=== PATIENT | female | born 1935 | race Caucasian/White ===

== ENCOUNTER 2017-03-28 10:40 | Inpatient (IN) | payer MEDICARE, MEDICAID, SELFPAY ==
[2017-03-28] VITALS (8 sets, daily range): BP systolic 160–188; BP diastolic 55–90; PULSE 51–80; RESP 14–18; TEMP 36.6–37.1; O2SAT 97–100; BMI 23.8; BMI 18.0; BMI 18.1
[2017-03-28 11:31] LABS: Absolute Lymphocyte Count 0.52 X10^3/ul (0.83-4.51); Absolute Neutrophil Count 2.1 X10^3/uL (2.0-7.7); Basophil# 0.12 X10^3/uL; Basophil% 3.4 % (0-1); Eosinophil# 0.29 X10^3/uL; Eosinophils% 8.2 % (0-5); Hematocrit 30.8 % (37-47); Hemoglobin 10.2 g/dl (12.0-15.0); Lymphocyte # 0.52 X10^3/ul (4.0); Lymphocyte % 14.7 % (19-41); Mean Corp Hgb Conc 33.1 g/gl (32-36); Mean Corpuscular Hgb 30.6 pg (27.0-32.0); Mean Corpuscular Volume 92.5 fL (81-99); Mean Platelet Vol. 9.1 fl (6.2-12.0); Monocyte% 14.1 % (0-10); Neutrophil # 2.11 X10^3/uL (2.7-7.7); Neutrophil % 59.6 % (47-70); Platelet Count 276 K/mm3 (150-450); RBC Distribution Width CV 13.2 % (11.6-14.6); RBC Distribution Width SD 43.6 fl (35.1-43.9); Red Blood Count 3.33 M/mm3 (4.2-5.4); White Blood Count 3.5 K/mm3 (4.4-11.0)
[2017-03-28 11:32] LABS: Differential Indicated SCAN CRITERIA MET; POSITIVE COUNT NO; POSITIVE DIFFERENTIAL YES; POSITIVE MORPHOLOGY NO
[2017-03-28 11:40] LABS: Anion Gap 9 (5-15); BUN 74 mg/dL (7-18); BUN/Creat Ratio 34.6 RATIO (10-20); Calcium,Total 8.5 mg/dL (8.5-10.1); Chloride 110 mmol/L (98-107); Creatinine, Serum 2.14 mg/dL (0.55-1.02); EST Glomerular Filtration Rate 23 mL/min (>60); Est Glom Filt Rate - Afr Amer 28 mL/min (>60); Estimated Creatinine Clearance 16.03 ml/min; Glucose 122 mg/dL (70-110); Potassium 4.8 mmol/L (3.5-5.1); Sodium Level 142 mmol/L (136-145)
[2017-03-28 11:45] LABS: Differential Comment SCANNED
[2017-03-28 11:54] LABS: Mucous, Urine 0 SEEN /hpf (<or=2+); Red Blood Cells-Urine 0 SEEN /hpf (0-5); Squamous Epithelial Cells - UA 0 SEEN /hpf (5-10)
[2017-03-28 12:01] LABS: Color, Urine Yellow (Yellow); Glucose, Dipstick Normal (Normal); Ketone-Dipstick Negative (Negative); Leukocyte Esterase-Dipstick 500 /ul (Negative); Nitrite-Dipstick Negative (Negative); Occult Blood-Urine 25 /ul (Negative); Protein-Dipstick 500 mg/dl (Negative); Urine Bilirubin Dipstick Negative (Negative); Urine Clarity Cloudy (Clear); Urine Urobilinogen Normal (Normal)
[2017-03-28 12:12] LABS: Bacteria 3+ /hpf (None Seen); White Blood Cells >100 SEEN /hpf (0-5)
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
[2017-03-28] MEDS: 0.9% Normal Saline 1,000 ML 100 ML IV (15:05)
[2017-03-28] MEDS: Menthol/Lanolin/Calamine/Znox 113 GM Tube 1 APPLIC TOPICAL (22:04)
[2017-03-29] VITALS (14 sets, daily range): BP systolic 130–200; BP diastolic 49–70; PULSE 43–57; RESP 14–18; TEMP 36.7–37.1; O2SAT 95–98
[2017-03-29] MEDS: 0.9% Normal Saline 1,000 ML 100 ML IV ×2 (00:41→10:08)
[2017-03-29] MEDS: amLODIPine 10 MG Tablet PO (06:11)
--- NOTE | 2017-03-29 08:23 | PCM.PN.HOSP ---
Subjective: Patient is an 81 year old lady admitted with confusion, progressive generalized weakness patient assessment on admission was consistent with UTI as well as acute kidney injury admitted to regular nursing floor where patient is currently being managed. Objective: GENERAL: Appears ill looking HEENT: Clear conjunctiva, dry oral mucosa NECK; supple, normal thyroid, CHEST: Clear to auscultation bilaterally, HEART: Regular S1 S2, systolic murmur ABDOMEN: soft, non-tender, normoactive bowel sounds, RECTAL: deferred EXTREMITIES: No edema, no cyanosis. DIRECTOR CLINICAL APPLICATIONS: Awake, no lateralizing signs. SKIN: Dry with loss of skin turgor Vitals/I&O's: Vital Signs Temp Pulse Resp BP Pulse Ox 98.2 F 55 14 200/62 98 03/29/17 08:22 03/29/17 08:22 03/29/17 08:22 03/29/17 08:22 03/29/17 08:22 Oxygen Delivery Method Room Air Weight: 44.8 kg Body Mass Index (BMI) 18.0 Intake and Output for Last 24 Hours 03/27/17 03/28/17 03/29/17 23:59 23:59 23:59 Intake Total 1271 584 Balance 1271 584 Current Medications Acetaminophen (Tylenol) 650 mg PO Q6H PRN PRN PRN Reason: Mild Pain (scale 0-3)/T>100.7 Al Hydroxide/Mg Hydroxide (Mylanta Ii) 30 ml PO Q6H PRN PRN PRN Reason: Gastric Burning Amlodipine Besylate (Norvasc) 10 mg PO DAILY [facility] Last Admin: 03/29/17 06:11 Dose: 10 mg Bisacodyl (Dulcolax) 10 mg RECTAL DAILY PRN PRN PRN Reason: Constipation Calamine/Phenol (Calmoseptine Ointment) 1 applic TOPICAL BID [facility] PRN Reason: Protocol Last Admin: 03/28/17 22:04 Dose: 1 applicatio Docusate Sodium (Colace) 200 mg PO BID PRN PRN PRN Reason: Constipation Enoxaparin Sodium (Lovenox) 30 mg SC DAILY@1000 SHANA Hydralazine HCl (Apresoline) 10 mg IV Q4H PRN PRN PRN Reason: hypertension Hydralazine HCl (Apresoline) 10 mg PO TID [facility] Sodium Chloride () 1,000 mls @ 100 mls/hr IV .Q10H [facility] Stop: 03/30/17 05:59 Last Admin: 03/29/17 00:41 Dose: 100 mls/hr Ceftriaxone Sodium 1 gm/ N/A 50 mls @ 100 mls/hr IV Q24 [facility] Labetalol HCl (Trandate) 200 mg PO BID [facility] Levothyroxine Sodium (Synthroid) 50 mcg PO DAILY [facility] Morphine Sulfate (Morphine) 2 - 4 mg IV Q3H PRN PRN PRN Reason: Severe Pain (pain scale 6-10) Morphine Sulfate (Morphine) 2 - 4 mg IV Q3H PRN PRN PRN Reason: Severe Pain (pain scale 6-10) Non-Formulary Medication (Menthol/Lanolin/Calamine/Znox [Calmoseptine Ointment]) 1 applic TOPICAL 0600,2200 [facility] Nutritional Formula (Lactose Free) (Ensure Enlive) 120 ml PO 4X/DAY [facility] Last Admin: 03/28/17 20:58 Dose: Not Given Ondansetron HCl (Zofran) 4 mg IV Q8H PRN PRN PRN Reason: Nausea Oxycodone HCl (Oxyir) 5 mg PO Q4H PRN PRN PRN Reason: Moderate Pain (pain scale 4-5) Polyethylene Glycol (Miralax) 17 gm PO DAILY PRN PRN Reason: Constipation Sodium Chloride () 5 - 30 ml IV UD PRN PRN Reason: SALINE FLUSH Zolpidem Tartrate (Ambien (Generic)) 5 mg PO QHS PRN PRN PRN Reason: INSOMNIA Assessment/Plan Patient is an 81-year-old lady presented with progressive generalized weakness found to have acute cystitis on admission 1. Acute cystitis: Admitted to a regular nursing floor started on Rocephin cultures sent 2. Acute kidney injury secondary to above and dehydration as a result of decreased oral intake patient on IV fluids with monitoring of electrolyte 3. Chronic kidney disease stage III secondary to hypertensive nephrosclerosis 4. Hypertension did continue with patient home medications 5. Hypothyroidism-patient is on levothyroxine home dose continued 6. 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 Anemia secondary to anemia of chronic disorder monitoring H&H with plans to transfuse if patient becomes symptomatic or hemoglobin falls below 7 8. DVT prophylaxis SCD Lovenox dose adjusted for kidney function 9. Acute encephalopathy (combination of infectious encephalopathy from UTI as well as metabolic encephalopathy from [place] I) CODE STATUS full code discussed with patient and son
[2017-03-29 09:12] LABS: Hemoglobin 10.8 g/dl (12.0-15.0); Mean Corp Hgb Conc 32.7 g/gl (32-36); Mean Corpuscular Hgb 30.3 pg (27.0-32.0); Mean Corpuscular Volume 92.7 fL (81-99); Mean Platelet Vol. 10.1 fl (6.2-12.0); Platelet Count 265 K/mm3 (150-450); RBC Distribution Width CV 13.4 % (11.6-14.6); RBC Distribution Width SD 44.2 fl (35.1-43.9); Red Blood Count 3.56 M/mm3 (4.2-5.4); White Blood Count 3.5 K/mm3 (4.4-11.0)
[2017-03-29 09:15] LABS: Scan Indicated on CBC? Y/N NO
[2017-03-29 09:27] LABS: Anion Gap 10 (5-15); BUN 67 mg/dL (7-18); BUN/Creat Ratio 36.8 RATIO (10-20); Calcium,Total 8.2 mg/dL (8.5-10.1); Chloride 112 mmol/L (98-107); Creatinine, Serum 1.82 mg/dL (0.55-1.02); EST Glomerular Filtration Rate 28 mL/min (>60); Est Glom Filt Rate - Afr Amer 34 mL/min (>60); Estimated Creatinine Clearance 16.85 ml/min; Glucose 144 mg/dL (70-110); Magnesium 2.1 mg/dL (1.8-2.4); Potassium 4.2 mmol/L (3.5-5.1); Sodium Level 141 mmol/L (136-145)
[2017-03-29] MEDS: Menthol/Lanolin/Calamine/Znox 113 GM Tube 1 APPLIC TOPICAL ×2 (10:04→21:18)
[2017-03-29] MEDS: Enoxaparin 30 MG/0.3 ML Syringe SC (10:05)
[2017-03-29] MEDS: Labetalol 200 MG Tablet PO ×2 (10:06→21:18)
[2017-03-29] MEDS: Levothyroxine 50 MCG Tablet PO (10:06)
--- NOTE | 2017-03-29 10:10 | CPS ---
patient unable to comprehend
[2017-03-29] MEDS: Acetaminophen 325 MG Tablet 650 MG PO (10:16)
[2017-03-29] MEDS: 0.45% Normal Saline 1,000 ML 100 ML IV (11:33)
--- NOTE | 2017-03-29 12:56 | NS ---
Noted weight stated by pt, please weigh patient to ensure wt accuracy.
[2017-03-29] MEDS: Zolpidem Tartrate 5 MG Tablet PO (21:29)
[2017-03-30] VITALS (10 sets, daily range): BP systolic 172–182; BP diastolic 54–67; PULSE 54–68; RESP 16–18; TEMP 36.8–37; O2SAT 95–98
[2017-03-30] MEDS: Levothyroxine 50 MCG Tablet PO (05:06)
[2017-03-30 06:29] LABS: Hematocrit 30.3 % (37-47); Hemoglobin 9.6 g/dl (12.0-15.0); Mean Corp Hgb Conc 31.7 g/gl (32-36); Mean Corpuscular Hgb 29.6 pg (27.0-32.0); Mean Corpuscular Volume 93.5 fL (81-99); Mean Platelet Vol. 9.9 fl (6.2-12.0); Platelet Count 280 K/mm3 (150-450); RBC Distribution Width CV 13.4 % (11.6-14.6); RBC Distribution Width SD 44.3 fl (35.1-43.9); Red Blood Count 3.24 M/mm3 (4.2-5.4); White Blood Count 3.9 K/mm3 (4.4-11.0)
[2017-03-30 06:43] LABS: Anion Gap 8 (5-15); BUN 63 mg/dL (7-18); BUN/Creat Ratio 31.3 RATIO (10-20); Calcium,Total 8.1 mg/dL (8.5-10.1); Chloride 111 mmol/L (98-107); Creatinine, Serum 2.01 mg/dL (0.55-1.02); EST Glomerular Filtration Rate 25 mL/min (>60); Est Glom Filt Rate - Afr Amer 31 mL/min (>60); Estimated Creatinine Clearance 15.26 ml/min; Glucose 122 mg/dL (70-110); Potassium 4.3 mmol/L (3.5-5.1); Sodium Level 139 mmol/L (136-145)
[2017-03-30 07:15] LABS: Scan Indicated on CBC? Y/N NO
[2017-03-30] MEDS: Menthol/Lanolin/Calamine/Znox 113 GM Tube 1 APPLIC TOPICAL (10:13)
[2017-03-30] MEDS: Labetalol 200 MG Tablet PO (10:14)
[2017-03-30] MEDS: Enoxaparin 30 MG/0.3 ML Syringe SC (10:14)
[2017-03-30] MEDS: amLODIPine 10 MG Tablet PO (10:14)
--- NOTE | 2017-03-30 10:25 | PCM.DC ---
- Discharge Diagnoses Current Active Problems: Current Active and Chronic Problems CKD (chronic kidney disease) stage 3, GFR 30-59 ml/min (Chronic) You will use the following diet at home:: No restrictions Discharge Activity: Return to Normal Activity Allergies/Adverse Reactions: Allergies Penicillins Allergy (Verified 03/28/17 10:43) Unknown Medications to take at Discharge Amlodipine [Norvasc] 10 mg PO DAILY 09/30/15 Labetalol [Trandate (Beta Oli)] 200 mg PO BID 09/30/15 Levothyroxine [Synthroid] 50 mcg PO DAILY 09/30/15 HydrALAZINE [Apresoline] 10 mg PO TID #90 tablet 02/04/17 Menthol/Lanolin/Calamine/Znox [Calmoseptine Ointment] 1 applic TOPICAL 0600,2200 #1 tube 02/04/17 Nystatin Powder [Mycostatin Powder] 1 applic TOPICAL 0600,2200 #1 bottle 02/04/17 Lisinopril [Zestril] 10 mg PO DAILY 03/28/17 Oxybutynin [Ditropan] 5 mg PO BID 03/28/17 Polyethylene Glycol 3350 [Miralax] 17 gm PO DAILY PRN 03/28/17 Ciprofloxacin [Cipro] 250 mg PO BID 5 Days 03/30/17 The following prescriptions were given: Ciprofloxacin [Cipro] 250 mg PO BID 5 Days Primary Care Physician: Felipe Ramirez MD [Primary Care Provider] - Proposed Discharge Date: 03/30/17
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
== END 2017-03-30 11:55 | disposition home or self-care (01) | DRG 690 ==
PROVIDERS: Admitting Provider Internal Medicine; Emergency Provider Emergency Medicine; Family Provider Family Medicine; PCP Family Medicine; Visit Provider Internal Medicine
DX: N30.00 Acute cystitis without hematuria (principal); G82.22 Paraplegia, incomplete; B96.4 Proteus (mirabilis) (morganii) as the cause of diseases classified elsewhere; I12.9 Hypertensive chronic kidney disease with stage 1 through stage 4 chronic kidney disease, or unspecified chronic kidney disease; R62.7 Adult failure to thrive; D64.9 Anemia, unspecified; E03.9 Hypothyroidism, unspecified; N18.3 Chronic kidney disease, stage 3 (moderate); Z79.899 Other long term (current) drug therapy; B91 Sequelae of poliomyelitis; E86.0 Dehydration; E11.22 Type 2 diabetes mellitus with diabetic chronic kidney disease
CPT/HCPCS: 36415; 80048; 81001; 83735; 85025; 85027; 87077; 87086; 87088; 87186; 97162; 97166; 97802; 99285; J7030; P9612; A4216

== ENCOUNTER 2017-08-06 08:31 | Inpatient (IN) | payer MEDICARE, SELFPAY ==
[2017-08-06] VITALS (26 sets, daily range): BP systolic 153–205; BP diastolic 48–166; PULSE 58–86; RESP 13–20; TEMP 36.4–37.1; O2SAT 96–98; BMI 23.2; BMI 22.1; BMI 22.2
--- NOTE | 2017-08-06 08:47 | RAD_ITS ---
PROCEDURE: X-RAY CHEST REASON FOR EXAM: Female, 81 years old. weakness TECHNIQUE: Frontal view of the chest. COMPARISON: July 14, 2017 FINDINGS: The lung volumes are low without demonstrated focal consolidation or pleural effusion.. Again noted is the moderate enlargement of the cardiomediastinal silhouette. There is aortic arch calcifications. There is a hiatal hernia. There is no pneumothorax. RAD/Chest 1 View (Portable) IMPRESSION: No focal consolidation or pleural effusion Cardiomegaly. Electronically Signed: Vladimir Barcenas MD at 10:23 EST Tel , Service support ,
--- NOTE | 2017-08-06 08:47 | CT_ITS ---
STUDY: CT BRAIN WITHOUT CONTRAST REASON FOR EXAM: Female, 81 years old. Confusion, dementia, hypertension, diabetes, polio, uterine cancer. RADIATION DOSAGE (If Supplied By Facility): CTDIvol = ( 44.99 ) mGy, DLP = ( 796.11 ) mGycm TECHNIQUE: Transaxial CT imaging of the brain was performed without administration of intravenous contrast material. Individualized dose optimization techniques were used for this CT. COMPARISON: None. FINDINGS: There is cerebral atrophy with widening of the extra-axial spaces and ventricular dilatation. There are areas of decreased attenuation within the white matter tracts of the supratentorial brain, consistent with microvascular disease changes. There is no intracranial hemorrhage. There are no findings of an acute ischemic infarction. Normal soft tissue structures. Normal visualized paranasal sinuses. CT/Brain/Head without Contrast IMPRESSION: Chronic involutional changes of the brain. Electronically Signed: Vladimir Barcenas MD at 10:21 EST Tel , Service support ,
--- NOTE | 2017-08-06 08:48 | EKG12_ITS ---
Test Reason : ILL Blood Pressure : / mmHG Vent. Rate : 066 BPM Atrial Rate : 066 BPM P-R Int : 168 ms QRS Dur : 086 ms QT Int : 472 ms P-R-T Axes : 045 018 048 degrees QTc Int : 494 ms Sinus rhythm with occasional Premature ventricular complexes Low voltage QRS Septal infarct , age undetermined Abnormal ECG Confirmed by AURA NAPIER, CISCO ([id number]), editor city ELIEZER BETTENCOURT ([id number]) on 08/11/2017 1:22:46 PM Referred By: MATTIE Confirmed By:CISCO CHAVARRIA MD
[2017-08-06] MEDS: 0.9% Normal Saline 1,000 ML 150 ML IV (09:23)
[2017-08-06 09:25] LABS: Bacteria 0 SEEN /hpf (None Seen); Mucous, Urine 0 SEEN /hpf (<or=2+); Red Blood Cells-Urine 0 SEEN /hpf (0-5); White Blood Cells 0 SEEN /hpf (0-5)
[2017-08-06 09:26] LABS: Color, Urine Yellow (Yellow); Glucose, Dipstick 50 mg/dl (Normal); Ketone-Dipstick Negative (Negative); Leukocyte Esterase-Dipstick Negative /ul (Negative); Nitrite-Dipstick Negative (Negative); Occult Blood-Urine Negative /ul (Negative); Protein-Dipstick 500 mg/dl (Negative); Specific Gravity, Urine 1.015 (1.002-1.030); Urine Bilirubin Dipstick Negative (Negative); Urine Clarity Sl. Cloudy (Clear); Urine Urobilinogen Normal (Normal)
[2017-08-06 09:31] LABS: Absolute Lymphocyte Count 0.49 X10^3/ul (0.83-4.51); Absolute Neutrophil Count 3.6 X10^3/uL (2.0-7.7); Basophil# 0.08 X10^3/uL; Basophil% 1.7 % (0-1); Eosinophil# 0.19 X10^3/uL; Eosinophils% 4.1 % (0-5); Hematocrit 29.3 % (37-47); Hemoglobin 9.4 g/dl (12.0-15.0); Lymphocyte # 0.49 X10^3/ul (4.0); Lymphocyte % 10.5 % (19-41); Mean Corp Hgb Conc 32.1 g/gl (32-36); Mean Corpuscular Hgb 31.8 pg (27.0-32.0); Mean Platelet Vol. 9.5 fl (6.2-12.0); Monocyte# 0.28 X10^3/uL; Neutrophil # 3.62 X10^3/uL (2.7-7.7); Neutrophil % 77.5 % (47-70); Platelet Count 259 K/mm3 (150-450); RBC Distribution Width CV 14.4 % (11.6-14.6); RBC Distribution Width SD 51.3 fl (35.1-43.9); Red Blood Count 2.96 M/mm3 (4.2-5.4); White Blood Count 4.7 K/mm3 (4.4-11.0)
[2017-08-06 09:32] LABS: Differential Indicated SCAN CRITERIA MET; POSITIVE COUNT NO; POSITIVE DIFFERENTIAL YES; POSITIVE MORPHOLOGY NO
[2017-08-06 09:35] LABS: Amorphous Sediment 1+; Squamous Epithelial Cells - UA 0-5 SEEN /hpf (5-10)
[2017-08-06 09:49] LABS: Acanthocytes 1+; Burr Cells RARE; Hypochromasia 1+; Platelet Estimate ADEQUATE (ADEQ); Schistocytes 1+
[2017-08-06 10:56] LABS: AST(SGOT) 20 U/L (15-37); Alanine Aminotransfer ALT/SGPT 20 U/L (12-78); Albumin, Serum 2.8 g/dL (3.4-5.0); Alkaline Phosphatase 92 U/L (45-117); Anion Gap 10 (5-15); BUN 49 mg/dL (7-18); BUN/Creat Ratio 22.3 RATIO (10-20); Calcium,Total 8.2 mg/dL (8.5-10.1); Chloride 114 mmol/L (98-107); EST Glomerular Filtration Rate 23 mL/min (>60); Est Glom Filt Rate - Afr Amer 27 mL/min (>60); Estimated Creatinine Clearance 15.59 ml/min; Globulin 2.9 g/dL (2.2-4.2); Glucose 104 mg/dL (70-110); Potassium 7.2 mmol/L (3.5-5.1); Protein, Total 5.7 g/dL (6.4-8.2); Sodium Level 138 mmol/L (136-145)
--- NOTE | 2017-08-06 10:56 | ED.RN ---
POTASSIUM 7.2. MD AWARE.
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
[2017-08-06] MEDS: Albuterol 2.5 MG/3 ML VIAL.NEB. INHALATION (11:19)
[2017-08-06] MEDS: Dextrose 50%-Water 25 GM/50 ML DISP.SYRIN IV (11:37)
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
[2017-08-06] MEDS: Calcium Chloride 1 GM/10 ML Syringe IV (11:39)
[2017-08-06] MEDS: Sodium Bicarbonate 8.4% 50 ML Syringe 50 MEQ IV (11:41)
[2017-08-06] MEDS: Sodium Polystyrene Sulfonate 15 GM/60 ML UDC 30 GM PO ×2 (11:45→20:08)
[2017-08-06 13:28] LABS: CPK Total, Creatine Kinase 159 U/L (26-192); Prealbumin 21.1 mg/dL (20.0-40.0)
[2017-08-06] MEDS: 0.9% Normal Saline 1,000 ML 100 ML IV ×2 (14:15→23:07)
[2017-08-06] MEDS: Heparin Injection 5,000 UNITS/ML Syringe 5000 UNITS SC ×2 (14:24→21:00)
[2017-08-06 18:51] LABS: Potassium 5.8 mmol/L (3.5-5.1)
[2017-08-06] MEDS: Oxybutynin 5 MG Tablet PO (21:00)
[2017-08-06] MEDS: Labetalol 200 MG Tablet PO (21:00)
[2017-08-07] VITALS (30 sets, daily range): BP systolic 141–198; BP diastolic 40–85; PULSE 52–76; RESP 12–16; TEMP 36.4–37.1; O2SAT 93–98
[2017-08-07 00:01] LABS: Potassium 4.7 mmol/L (3.5-5.1)
[2017-08-07] MEDS: Heparin Injection 5,000 UNITS/ML Syringe 5000 UNITS SC ×3 (05:50→23:06)
[2017-08-07] MEDS: Levothyroxine 50 MCG Tablet PO (05:50)
--- NOTE | 2017-08-07 05:55 | EKG12_ITS ---
Test Reason : AM Blood Pressure : / mmHG Vent. Rate : 069 BPM Atrial Rate : 069 BPM P-R Int : 158 ms QRS Dur : 068 ms QT Int : 400 ms P-R-T Axes : 032 052 043 degrees QTc Int : 428 ms Normal sinus rhythm Low voltage QRS Septal infarct (cited on or before 01-JUL-2017) Abnormal ECG When compared with ECG of 14-JUL-2017 13:33, T wave amplitude has decreased in Anterior leads Confirmed by AURA NAPIER, CISCO ([id number]), image editor ELIEZER BETTENCOURT ([id number]) on 08/12/2017 4:09:46 PM Referred By: Confirmed By:CISCO CHAVARRIA MD
[2017-08-07 06:44] LABS: Anion Gap 10 (5-15); BUN 40 mg/dL (7-18); BUN/Creat Ratio 20.9 RATIO (10-20); Calcium,Total 7.8 mg/dL (8.5-10.1); Chloride 118 mmol/L (98-107); Creatinine, Serum 1.91 mg/dL (0.55-1.02); EST Glomerular Filtration Rate 27 mL/min (>60); Est Glom Filt Rate - Afr Amer 32 mL/min (>60); Estimated Creatinine Clearance 17.96 ml/min; Glucose 105 mg/dL (70-110); Potassium 4.1 mmol/L (3.5-5.1); Sodium Level 144 mmol/L (136-145)
[2017-08-07 06:57] LABS: Absolute Lymphocyte Count 0.42 X10^3/ul (0.83-4.51); Absolute Neutrophil Count 2.4 X10^3/uL (2.0-7.7); Basophil# 0.08 X10^3/uL; Basophil% 2.4 % (0-1); Eosinophil# 0.19 X10^3/uL; Eosinophils% 5.7 % (0-5); Hematocrit 24.2 % (37-47); Hemoglobin 7.8 g/dl (12.0-15.0); Lymphocyte # 0.42 X10^3/ul (4.0); Lymphocyte % 12.7 % (19-41); Mean Corp Hgb Conc 32.2 g/gl (32-36); Mean Corpuscular Volume 99.2 fL (81-99); Monocyte# 0.24 X10^3/uL; Monocyte% 7.2 % (0-10); Neutrophil # 2.39 X10^3/uL (2.7-7.7); Platelet Count 266 K/mm3 (150-450); RBC Distribution Width CV 13.9 % (11.6-14.6); RBC Distribution Width SD 47.8 fl (35.1-43.9); Red Blood Count 2.44 M/mm3 (4.2-5.4); White Blood Count 3.3 K/mm3 (4.4-11.0)
[2017-08-07 07:04] LABS: Differential Indicated SCAN CRITERIA MET; POSITIVE COUNT NO; POSITIVE DIFFERENTIAL YES; POSITIVE MORPHOLOGY NO
[2017-08-07 07:22] LABS: Differential Comment SCANNED
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
--- NOTE | 2017-08-07 09:06 | CASEMGMT ---
Received VMM from [facility], whose name sounded like [facility], requesting a call-back regarding disposition plan for patient. RN CHRISTINA made referral to social media editor, Swati Story, due to complex pyschosocial history. The patient is dependent on aides and family for all ADLs, is wheelchair bound, and receives Mom's Meals. Patient is a readmission, with an admission in June and two admissions in July. Contact information for [facility] provided to [facility] Swati MALIN. RN CM will remain available to assist with transition planning and care coordination as needed.
[2017-08-07 09:11] LABS: Ferritin 121 ng/mL (8-252); Iron 55 ug/dL (50-170); Iron Binding Capacity,Total 237 ug/dL (250-450); PERCENT IRON SATURATION 23.2 % (15.0-55.0)
[2017-08-07] MEDS: 0.9% Normal Saline 1,000 ML 75 ML IV (09:23)
[2017-08-07] MEDS: Docusate Sodium 100 MG Capsule PO ×2 (09:24→23:07)
[2017-08-07] MEDS: Labetalol 200 MG Tablet PO ×2 (09:24→23:06)
[2017-08-07] MEDS: amLODIPine 10 MG Tablet PO (09:24)
[2017-08-07] MEDS: Oxybutynin 5 MG Tablet PO ×2 (09:24→23:09)
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
[2017-08-08] VITALS (21 sets, daily range): BP systolic 162–216; BP diastolic 46–98; PULSE 38–65; RESP 16–18; TEMP 36.7–37.2; O2SAT 94–96
[2017-08-08] MEDS: 0.9% Normal Saline 1,000 ML 75 ML IV (05:18)
[2017-08-08] MEDS: Heparin Injection 5,000 UNITS/ML Syringe 5000 UNITS SC ×2 (05:45→15:29)
[2017-08-08] MEDS: Levothyroxine 50 MCG Tablet PO (05:45)
[2017-08-08] MEDS: cloNIDine HCl 0.2 MG Tablet PO (07:41)
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
[2017-08-08 08:19] LABS: Absolute Lymphocyte Count 0.42 X10^3/ul (0.83-4.51); Absolute Neutrophil Count 2.8 X10^3/uL (2.0-7.7); Basophil# 0.08 X10^3/uL; Basophil% 2.1 % (0-1); Eosinophil# 0.22 X10^3/uL; Eosinophils% 5.8 % (0-5); Hematocrit 30.1 % (37-47); Hemoglobin 9.8 g/dl (12.0-15.0); Lymphocyte # 0.42 X10^3/ul (4.0); Lymphocyte % 11.1 % (19-41); Mean Corp Hgb Conc 32.6 g/gl (32-36); Mean Corpuscular Hgb 30.8 pg (27.0-32.0); Mean Corpuscular Volume 94.7 fL (81-99); Mean Platelet Vol. 9.6 fl (6.2-12.0); Monocyte# 0.29 X10^3/uL; Monocyte% 7.7 % (0-10); Neutrophil # 2.76 X10^3/uL (2.7-7.7); Platelet Count 272 K/mm3 (150-450); RBC Distribution Width CV 16.2 % (11.6-14.6); RBC Distribution Width SD 54.5 fl (35.1-43.9); Red Blood Count 3.18 M/mm3 (4.2-5.4); White Blood Count 3.8 K/mm3 (4.4-11.0)
[2017-08-08 08:25] LABS: Differential Indicated SCAN CRITERIA MET; POSITIVE COUNT NO; POSITIVE DIFFERENTIAL YES; POSITIVE MORPHOLOGY NO
[2017-08-08 08:37] LABS: Anion Gap 9 (5-15); BUN 33 mg/dL (7-18); BUN/Creat Ratio 21.9 RATIO (10-20); Calcium,Total 7.7 mg/dL (8.5-10.1); Chloride 118 mmol/L (98-107); Creatinine, Serum 1.51 mg/dL (0.55-1.02); EST Glomerular Filtration Rate 35 mL/min (>60); Est Glom Filt Rate - Afr Amer 42 mL/min (>60); Estimated Creatinine Clearance 22.72 ml/min; Glucose 124 mg/dL (70-110); Potassium 3.6 mmol/L (3.5-5.1); Sodium Level 146 mmol/L (136-145)
[2017-08-08] MEDS: Docusate Sodium 100 MG Capsule PO (09:34)
[2017-08-08] MEDS: amLODIPine 10 MG Tablet PO (09:35)
[2017-08-08] MEDS: Oxybutynin 5 MG Tablet PO (09:36)
[2017-08-08] MEDS: 0.45% Normal Saline 1,000 ML 60 ML IV (10:20)
--- NOTE | 2017-08-08 19:26 | NURSING ---
REVIEWED AND AGREED W/ Fareed RODRIGUEZONS CHARTING.
[2017-08-09] VITALS (24 sets, daily range): BP systolic 159–207; BP diastolic 55–73; PULSE 41–66; RESP 15–18; TEMP 36.4–37.2; O2SAT 94–97
[2017-08-09] MEDS: 0.45% Normal Saline 1,000 ML 60 ML IV ×2 (01:26→17:35)
[2017-08-09] MEDS: Heparin Injection 5,000 UNITS/ML Syringe 5000 UNITS SC ×2 (05:44→20:45)
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
[2017-08-09] MEDS: Levothyroxine 50 MCG Tablet PO (07:40)
[2017-08-09] MEDS: amLODIPine 10 MG Tablet PO ×2 (10:12→20:41)
[2017-08-09] MEDS: Oxybutynin 5 MG Tablet PO ×2 (10:12→20:45)
[2017-08-09] MEDS: Docusate Sodium 100 MG Capsule PO (10:12)
[2017-08-10] VITALS (20 sets, daily range): BP systolic 167–204; BP diastolic 46–69; PULSE 50–64; RESP 15–18; TEMP 36.6–37.3; O2SAT 94–96
[2017-08-10] MEDS: Labetalol 200 MG Tablet PO ×2 (01:40→10:25)
[2017-08-10] MEDS: Heparin Injection 5,000 UNITS/ML Syringe 5000 UNITS SC ×2 (06:04→21:10)
[2017-08-10] MEDS: Levothyroxine 50 MCG Tablet PO (06:04)
[2017-08-10 06:25] LABS: Absolute Lymphocyte Count 0.43 X10^3/ul (0.83-4.51); Basophil# 0.07 X10^3/uL; Basophil% 1.3 % (0-1); Eosinophil# 0.39 X10^3/uL; Eosinophils% 7.5 % (0-5); Hematocrit 34.4 % (37-47); Hemoglobin 10.7 g/dl (12.0-15.0); Lymphocyte # 0.43 X10^3/ul (4.0); Lymphocyte % 8.3 % (19-41); Mean Corp Hgb Conc 31.1 g/gl (32-36); Mean Corpuscular Hgb 30.7 pg (27.0-32.0); Mean Corpuscular Volume 98.6 fL (81-99); Mean Platelet Vol. 9.9 fl (6.2-12.0); Monocyte# 0.33 X10^3/uL; Monocyte% 6.3 % (0-10); Neutrophil # 3.96 X10^3/uL (2.7-7.7); Neutrophil % 76.2 % (47-70); POSITIVE COUNT NO; POSITIVE DIFFERENTIAL YES; POSITIVE MORPHOLOGY NO; Platelet Count 198 K/mm3 (150-450); RBC Distribution Width CV 16.3 % (11.6-14.6); RBC Distribution Width SD 58.9 fl (35.1-43.9); Red Blood Count 3.49 M/mm3 (4.2-5.4); White Blood Count 5.2 K/mm3 (4.4-11.0)
[2017-08-10 06:26] LABS: Differential Indicated SCAN CRITERIA MET
[2017-08-10 06:37] LABS: Anion Gap 10 (5-15); BUN 34 mg/dL (7-18); BUN/Creat Ratio 25.4 RATIO (10-20); Calcium,Total 7.8 mg/dL (8.5-10.1); Chloride 115 mmol/L (98-107); Creatinine, Serum 1.34 mg/dL (0.55-1.02); EST Glomerular Filtration Rate 40 mL/min (>60); Est Glom Filt Rate - Afr Amer 49 mL/min (>60); Glucose 116 mg/dL (70-110); Sodium Level 142 mmol/L (136-145)
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
[2017-08-10] MEDS: amLODIPine 10 MG Tablet PO ×2 (10:24→21:10)
[2017-08-10] MEDS: Lisinopril 10 MG Tablet PO (10:25)
[2017-08-10] MEDS: Doxazosin 4 MG Tablet PO (10:25)
[2017-08-10] MEDS: Docusate Sodium 100 MG Capsule PO ×2 (10:26→21:10)
[2017-08-10] MEDS: Oxybutynin 5 MG Tablet PO ×2 (10:27→21:10)
[2017-08-10] MEDS: 0.45% Normal Saline 1,000 ML 30 ML IV (11:38)
[2017-08-11] VITALS (16 sets, daily range): BP systolic 145–178; BP diastolic 49–62; PULSE 54–68; RESP 16–18; TEMP 36.7–37.2; O2SAT 93–96
[2017-08-11] MEDS: Heparin Injection 5,000 UNITS/ML Syringe 5000 UNITS SC ×3 (05:28→22:48)
[2017-08-11] MEDS: Levothyroxine 50 MCG Tablet PO (05:28)
[2017-08-11 06:52] LABS: Anion Gap 9 (5-15); BUN 38 mg/dL (7-18); BUN/Creat Ratio 24.1 RATIO (10-20); Calcium,Total 7.6 mg/dL (8.5-10.1); Chloride 115 mmol/L (98-107); Creatinine, Serum 1.58 mg/dL (0.55-1.02); EST Glomerular Filtration Rate 33 mL/min (>60); Est Glom Filt Rate - Afr Amer 40 mL/min (>60); Estimated Creatinine Clearance 21.71 ml/min; Glucose 119 mg/dL (70-110); Potassium 4.3 mmol/L (3.5-5.1); Sodium Level 142 mmol/L (136-145)
[2017-08-11] MEDS: Docusate Sodium 100 MG Capsule PO ×2 (09:49→22:47)
[2017-08-11] MEDS: Oxybutynin 5 MG Tablet PO ×2 (09:49→22:47)
[2017-08-11] MEDS: Doxazosin 4 MG Tablet PO (09:49)
[2017-08-11] MEDS: amLODIPine 10 MG Tablet PO ×2 (09:49→22:47)
[2017-08-11] MEDS: Lisinopril 10 MG Tablet PO (09:50)
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
[2017-08-11] MEDS: 0.9% Normal Saline 1,000 ML 75 ML IV (14:14)
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
--- NOTE | 2017-08-11 16:24 | CASEMGMT ---
KIMO spoke with Bria from [facility]. They can take patient and pre-cert has been started. Plan: [facility] pending insurance approval. Suze FONSECA MSW
[2017-08-11] MEDS: Labetalol 200 MG Tablet PO (23:05)
[2017-08-12] VITALS (15 sets, daily range): BP systolic 149–170; BP diastolic 47–74; PULSE 56–64; RESP 18; TEMP 36.9–37; O2SAT 94–95
[2017-08-12] MEDS: 0.9% Normal Saline 1,000 ML 100 ML IV ×3 (01:22→20:07)
[2017-08-12] MEDS: Heparin Injection 5,000 UNITS/ML Syringe 5000 UNITS SC ×3 (05:09→22:15)
[2017-08-12] MEDS: Levothyroxine 50 MCG Tablet PO (05:09)
[2017-08-12 07:01] LABS: Anion Gap 5 (5-15); BUN 42 mg/dL (7-18); BUN/Creat Ratio 28.2 RATIO (10-20); Calcium,Total 7.5 mg/dL (8.5-10.1); Chloride 116 mmol/L (98-107); Creatinine, Serum 1.49 mg/dL (0.55-1.02); EST Glomerular Filtration Rate 36 mL/min (>60); Est Glom Filt Rate - Afr Amer 43 mL/min (>60); Estimated Creatinine Clearance 23.02 ml/min; Glucose 118 mg/dL (70-110); Potassium 4.4 mmol/L (3.5-5.1); Sodium Level 142 mmol/L (136-145)
[2017-08-12] MEDS: Lisinopril 40 MG Tablet PO (09:05)
[2017-08-12] MEDS: Labetalol 200 MG Tablet PO ×2 (09:05→22:14)
[2017-08-12] MEDS: amLODIPine 10 MG Tablet PO ×2 (09:06→22:14)
[2017-08-12] MEDS: Docusate Sodium 100 MG Capsule PO ×2 (09:06→22:14)
[2017-08-12] MEDS: Oxybutynin 5 MG Tablet PO ×2 (09:06→22:14)
[2017-08-12] MEDS: Doxazosin 4 MG Tablet PO (09:06)
[2017-08-12 16:09] LABS: Albumin 2.3 g/dL (2.9-4.4); Alpha-1-Globulins 0.2 g/dL (0.0-0.4); Alpha-2-Globulins 0.7 g/dL (0.4-1.0); Gamma Globulin 0.4 g/dL (0.4-1.8); Immunoglobulin A 122 mg/dL (64-422); Immunoglobulin G 408 mg/dL (700-1600); PROEL- TOTAL PROTEIN 4.4 g/dL (6.0-8.5)
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
[2017-08-12 18:50] LABS: Immunoglobulin M 14 mg/dL (26-217)
[2017-08-13] VITALS (13 sets, daily range): BP systolic 142–185; BP diastolic 54–68; PULSE 57–63; RESP 16–18; TEMP 36.8–36.9; O2SAT 93–95
[2017-08-13 06:01] LABS: Anion Gap 9 (5-15); BUN 47 mg/dL (7-18); BUN/Creat Ratio 32.6 RATIO (10-20); Calcium,Total 7.6 mg/dL (8.5-10.1); Chloride 116 mmol/L (98-107); Creatinine, Serum 1.44 mg/dL (0.55-1.02); EST Glomerular Filtration Rate 37 mL/min (>60); Est Glom Filt Rate - Afr Amer 45 mL/min (>60); Estimated Creatinine Clearance 23.82 ml/min; Glucose 118 mg/dL (70-110); Potassium 4.4 mmol/L (3.5-5.1); Sodium Level 141 mmol/L (136-145)
[2017-08-13] MEDS: Heparin Injection 5,000 UNITS/ML Syringe 5000 UNITS SC ×3 (06:16→21:37)
[2017-08-13] MEDS: Levothyroxine 50 MCG Tablet PO (06:16)
[2017-08-13] MEDS: 0.9% Normal Saline 1,000 ML 100 ML IV (06:16)
[2017-08-13] MEDS: amLODIPine 10 MG Tablet PO ×2 (09:31→21:38)
[2017-08-13] MEDS: Lisinopril 40 MG Tablet PO (09:31)
[2017-08-13] MEDS: Doxazosin 4 MG Tablet PO (09:32)
[2017-08-13] MEDS: Labetalol 200 MG Tablet PO ×2 (09:32→21:38)
[2017-08-13] MEDS: Docusate Sodium 100 MG Capsule PO ×2 (09:32→21:37)
[2017-08-13] MEDS: Oxybutynin 5 MG Tablet PO ×2 (09:32→21:37)
--- NOTE | 2017-08-13 10:16 | PCM.PN.REN ---
Subjective: no new complaints - Physical Exam General: Alert, Oriented x3, Cooperative HEENT: Atraumatic, PERRLA, EOMI, Normocephalic Neck: Supple, No JVD, Negative Carotid Bruits Lungs: Clear to auscultation, Normal air movement Cardiovascular: Regular rate, No murmurs Abdomen: Bowel Sounds Present, Soft, Non Tender Extremities: No edema, Capillary Refill Less than 3 Seconds Skin: No rashes, No breakdown Musculoskeletal: No Tenderness to Palpation of Joints or Extremities Neurological: Cranial nerves II-XII grossly intact Psych/Mental Status: Normal Affect, Appropriate Vital Signs Temp Pulse Resp BP Pulse Ox 98.5 F 62 16 170/57 H 95 08/13/17 09:00 08/13/17 09:00 08/13/17 09:00 08/13/17 09:00 08/13/17 09:00 Oxygen Delivery Method Room Air Weight: 55.026 kg Body Mass Index (BMI) 22.1 Intake and Output for Last 24 Hours 08/11/17 08/12/17 08/13/17 23:59 23:59 23:59 Intake Total 1104 / 1104 2996 / 2996 1255 / 1255 Output Total 750 / 750 600 / 600 325 / 325 Balance 354 / 354 2396 / 2396 930 / 930 Laboratory Tests Past 24 Hrs 08/11/17 08/13/17 12:50 05:10 Sodium 141 Potassium 4.4 Chloride 116 H Carbon Dioxide 16.0 L Anion Gap 9 BUN 47 H Creatinine 1.44 H Estim Creat Clear Calc 23.82 Est GFR (MDRD) Af Amer 45 L Est GFR (MDRD) Non-Af 37 L BUN/Creatinine Ratio 32.6 H Glucose 118 H Calcium 7.6 L Total Protein (PEP) 4.4 L IgG 408 L IgA 122 IgM 14 L Immunofixation Screen Comment Albumin (LILIA) 2.3 L Albumin/Globulin (LILIA) 1.1 [id number] LILIA 0.2 [id number] LILIA 0.7 Beta-Globulins (LILIA) 0.7 Gamma Globulins (LILIA) 2.1 L LILIA M-Ralph LILIA Comments Comment Assessment/Plan KYLER CKD stage 3/4 Baseline creatinine was around 1.7 to 1.9 with several fluctuations. Current values are close to baseline. No need for further work up Proteinuria. Significantly worsened in last one year. Last urine PCR was around 13 gm which is new. Will check SPEP. There is no documented diabetes recently. Edema could be related to massive proteinuria HTN. lisinopril to maximum dose. other meds as before. Resume lasix 40 mg once daily .
--- NOTE | 2017-08-13 12:19 | PCM.PN.REN ---
Subjective: no new complaints - Physical Exam General: Alert, Oriented x3, Cooperative HEENT: Atraumatic, PERRLA, EOMI, Normocephalic Neck: Supple, No JVD, Negative Carotid Bruits Lungs: Clear to auscultation, Normal air movement Cardiovascular: Regular rate, No murmurs Abdomen: Bowel Sounds Present, Soft, Non Tender Extremities: No edema, Capillary Refill Less than 3 Seconds Skin: No rashes, No breakdown Musculoskeletal: No Tenderness to Palpation of Joints or Extremities Neurological: Cranial nerves II-XII grossly intact Psych/Mental Status: Normal Affect, Appropriate Vital Signs Temp Pulse Resp BP Pulse Ox 98.5 F 63 16 170/57 H 95 08/13/17 09:00 08/13/17 11:13 08/13/17 09:00 08/13/17 09:00 08/13/17 09:00 Oxygen Delivery Method Room Air Weight: 55.026 kg Body Mass Index (BMI) 22.1 Intake and Output for Last 24 Hours 08/11/17 08/12/17 08/13/17 23:59 23:59 23:59 Intake Total 1104 / 1104 2996 / 2996 2030 / 2030 Output Total 750 / 750 600 / 600 525 / 525 Balance 354 / 354 2396 / 2396 1506 / 1506 Laboratory Tests Past 24 Hrs 08/11/17 08/13/17 12:50 05:10 Sodium 141 Potassium 4.4 Chloride 116 H Carbon Dioxide 16.0 L Anion Gap 9 BUN 47 H Creatinine 1.44 H Estim Creat Clear Calc 23.82 Est GFR (MDRD) Af Amer 45 L Est GFR (MDRD) Non-Af 37 L BUN/Creatinine Ratio 32.6 H Glucose 118 H Calcium 7.6 L Total Protein (PEP) 4.4 L IgG 408 L IgA 122 IgM 14 L Immunofixation Screen Comment Albumin (LILIA) 2.3 L Albumin/Globulin (LILIA) 1.1 Mshyj-4-Mywejuhno LILIA 0.2 Raqpl-2-Llncgvtli LILIA 0.7 Beta-Globulins (LILIA) 0.7 Gamma Globulins (LILIA) 2.1 L LILIA M-Ralph LILIA Comments Comment Assessment/Plan KYLER CKD stage 3/4 Baseline creatinine was around 1.7 to 1.9 with several fluctuations. Current values are close to baseline. No need for further work up Proteinuria. Significantly worsened in last one year. Last urine PCR was around 13 gm which is new. SPEP is negative. There is no documented diabetes recently. Edema could be related to massive proteinuria HTN. lisinopril to maximum dose. other meds as before. Edema. urine output is on lower side. lasix 40 mg BID po
--- NOTE | 2017-08-13 13:59 | CASEMGMT ---
Late Entry; Note from Thursday08-12-17 SW spoke with patient's daughter and let her know we are still waiting on insurance authorization. Suze FONSECA MSW
--- NOTE | 2017-08-13 14:01 | CASEMGMT ---
KIMO called Bria at [facility] and she said insurance asked her to fax the clinicals again. She plans on calling them again today. Suze FONSECA MSW
[2017-08-13] MEDS: Furosemide 40 MG Tablet PO (17:19)
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
[2017-08-14] VITALS (8 sets, daily range): BP systolic 146–167; BP diastolic 45–50; PULSE 56–61; RESP 12–18; TEMP 36.7–36.8; O2SAT 93–95
[2017-08-14] MEDS: Levothyroxine 50 MCG Tablet PO (06:07)
[2017-08-14] MEDS: Heparin Injection 5,000 UNITS/ML Syringe 5000 UNITS SC (06:07)
[2017-08-14] MEDS: Oxybutynin 5 MG Tablet PO (09:20)
[2017-08-14] MEDS: Docusate Sodium 100 MG Capsule PO (09:20)
[2017-08-14] MEDS: Labetalol 200 MG Tablet PO (09:20)
[2017-08-14] MEDS: Furosemide 40 MG Tablet PO (09:21)
[2017-08-14] MEDS: Doxazosin 4 MG Tablet PO (09:21)
[2017-08-14] MEDS: amLODIPine 10 MG Tablet PO (09:21)
[2017-08-14] MEDS: Lisinopril 40 MG Tablet PO (09:21)
--- NOTE | 2017-08-14 11:40 | PCM.TXEXTCAR ---
- Diet Renal diet - Routine Orders/Code Status Routine Lab Work: CBC - in 3 days, BMP - in 3 days - Wound(s) Left Hand Wound Type: Skin Tear - Therapies Physical Therapy: Eval and Treat Occupational Therapy: Eval and Treat - Allergies/Procedures Done in Hospital Allergies/Adverse Reactions: Allergies Penicillins Allergy (Verified 08/06/17 08:41) Unknown Procedures: None - Type of Care/Length of Stay Estimated LOS: Convalescent Care Less Than 30 days Type of Care Needed: Skilled Rehab Potential: Fair Prognosis: Fair - Additional Orders/Day of Discharge Day of Discharge: 08/14/17 - Dietary and Speech Recommendations Dietitian Recommendations/Changes: Continue regular diet d/t poor intake [employer] 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 Will order Ensure ONS w/ medpass- anticipate oral intake will not adequately meet pt's nutritional needs. - Follow Up Care Primary Care Physician: Felipe Ramirez MD [Primary Care Provider] - Please follow up with your Primary Care Physician in: within 2 weeks of discharge Please Follow Up With: Gisell Klein MD When: in 2 weeks
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
--- NOTE | 2017-08-14 11:43 | TREXTCAR_ITS ---
- Diet Renal diet - Routine Orders/Code Status Routine Lab Work: CBC - in 3 days, BMP - in 3 days - Wound(s) Left Hand Wound Type: Skin Tear - Therapies Physical Therapy: Eval and Treat Occupational Therapy: Eval and Treat - Allergies/Procedures Done in Hospital Allergies/Adverse Reactions: Allergies Penicillins Allergy (Verified 08/06/17 08:41) Unknown Procedures: None - Type of Care/Length of Stay Estimated LOS: Convalescent Care Less Than 30 days Type of Care Needed: Skilled Rehab Potential: Fair Prognosis: Fair - Additional Orders/Day of Discharge Day of Discharge: 08/14/17 - Dietary and Speech Recommendations Dietitian Recommendations/Changes: Continue regular diet d/t poor intake 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 Will order Ensure ONS w/ medpass- anticipate oral intake will not adequately meet pt's nutritional needs. - Follow Up Care Primary Care Physician: Felipe Ramirez MD [Primary Care Provider] - Please follow up with your Primary Care Physician in: within 2 weeks of discharge Please Follow Up With: Gisell Klein MD When: in 2 weeks
--- NOTE | 2017-08-14 12:29 | CASEMGMT ---
KIMO received a call from Bria at [facility] and she received approval for patient. KIMO let patient know as well as RN and secretary administrative assistant. KIMO called patient's daughter,Paulette, to let her know. KIMO then called [facility] and arranged for patient to get picked up at via cot. KIMO called patient's daughter and let her know. KIMO also let Bria at [facility] aware. RN and secretary administrative assistant also were given this information. KIMO completed convalescent on HENS. KIMO also called patient's Passport CM, Araseli Hay and left her a voice mail letting her know this information. All in agreement with d/c plan. Plan: d/c to [facility] under skilled level of care on a convalescent stay. [facility] to transport patient via cot. Suze FONSECA MSW
--- NOTE | 2017-08-14 14:05 | NURSING ---
Report given to transport and called to receiving RN, Holly, at [facility]. Beranne RAMOS
== END 2017-08-14 14:12 | disposition skilled nursing facility (03) | DRG 641 ==
LOC: ED 10:00 → PCU 11:37
PROVIDERS: Internal Medicine; Internal Medicine Nephrology; Admitting Provider Hospitalist; Emergency Provider Emergency Medicine; Family Provider Family Medicine; PCP Family Medicine; Visit Provider Internal Medicine
DX: E87.5 Hyperkalemia (principal); G82.20 Paraplegia, unspecified; E86.0 Dehydration; D63.1 Anemia in chronic kidney disease; I12.9 Hypertensive chronic kidney disease with stage 1 through stage 4 chronic kidney disease, or unspecified chronic kidney disease; E03.9 Hypothyroidism, unspecified; B91 Sequelae of poliomyelitis; Z79.899 Other long term (current) drug therapy; Q78.8 Other specified osteochondrodysplasias; Z74.01 Bed confinement status; R62.7 Adult failure to thrive; F03.90 Unspecified dementia, unspecified severity, without behavioral disturbance, psychotic disturbance, mood disturbance, and anxiety; N32.81 Overactive bladder; Z68.22 Body mass index [BMI] 22.0-22.9, adult; N18.3 Chronic kidney disease, stage 3 (moderate); R73.02 Impaired glucose tolerance (oral); Z91.412 Personal history of adult neglect
CPT/HCPCS: 36415; 70450; 71010; 80048; 80053; 81001; 82550; 82728; 82784; 83540; 83550; 84132; 84134; 84165; 84484; 85025; 86334; 86850; 86900; 86920; 86922; 93005; 94640; 97110; 97162; 97166; 97530; 97802; 99285; J7030; J7040; P9016; A4216

== ENCOUNTER → 2017-09-23 09:06 | Outpatient (CLI) | payer MEDICARE, SELFPAY ==
[2017-09-23 09:10] VITALS: BP 132/82; PULSE 57; RESP 20; TEMP 36.9; O2SAT 97
[2017-09-23 09:44] VITALS: BP 102/54; PULSE 57; RESP 18; TEMP 37.7; O2SAT 97
[2017-09-23 10:44] VITALS: BP 134/58; PULSE 48; RESP 14; TEMP 37.2; O2SAT 95
[2017-09-23] MEDS: Furosemide 20 MG/2 ML VIAL IV (11:36)
[2017-09-23 11:38] VITALS: BP 150/64; PULSE 56; RESP 20; TEMP 37.1; O2SAT 96
[2017-09-23 12:08] VITALS: BP 141/75; PULSE 56; RESP 18; TEMP 36.6; O2SAT 98
[2017-09-23 13:23] VITALS: BP 107/61; PULSE 55; RESP 20; TEMP 35.8; O2SAT 94
== END ==
PROVIDERS: Family Provider Family Medicine; PCP Family Medicine; Visit Provider Family Medicine
DX: D64.9 Anemia, unspecified (principal)
CPT/HCPCS: 36415; 36430; 86850; 86900; 86920; 86922; J7040; P9016; A4216; J1940